=== PATIENT | male | born 1960 | race Hispanic/Latino ===

== ENCOUNTER 2017-03-20 14:37 | Emergency (ER) | payer OTHER ==
[~2017-03-20] VITALS: Ht 161.3 cm; Wt 70.3 kg
[~2017-03-20 14:37] MED LIST: FLEXERIL10 MG PO; MOBIC 15MG15 MG PO; PERCOCET 325 MG1 TA2 PO
[2017-03-20 14:39] VITALS: BP 136/87
== END 2017-03-20 15:23 | disposition admitted as inpatient to this hospital (09) ==
LOC: ERH 14:37
DX: S61.012A Laceration without foreign body of left thumb without damage to nail, initial encounter (principal); W26.0XXA Contact with knife, initial encounter

== ENCOUNTER 2017-12-19 19:27 | Emergency (ER) | payer OTHER ==
[~2017-12-19] VITALS: Ht 160 cm; Wt 70.3 kg
[~2017-12-19 19:27] MED LIST changes: +CYCLOBENZAPRINE10 M1 PO; +NEURONTIN300 M1 PO; +PERCOCET 5-3251 EACH PO
[2017-12-19 19:40] VITALS: BP 149/85
--- NOTE | 2017-12-19 19:46 | ED UPPER/LOWER EXTREMITY COMPL ---
History of Present Illness General Chief Complaint: Lower Extremity Problems Stated Complaint: LEFT LEG EXCRUCIATING PAIN, HERE YEST FOR SAME Source: patient, family, old records Exam Limitations: no limitations Vital Signs & Intake/Output Vital Signs & Intake/Output Vital Signs Date Time Temp Pulse Resp B/P B/P Pulse O2 O2 Flow FiO2 Mean Ox Delivery Rate 12/20 1939 96.9 87 20 149/85 98 Room Air ED Intake and Output 12/20 0000 12/19 1200 Intake Total 0 Output Total Balance 0 Intake, Oral 0 Patient 155 lb Weight Allergies Coded Allergies: NO KNOWN ALLERGIES (12/19/17) Reconcile Medications Cyclobenzaprine HCl 10 MG TABLET 1 TAB PO TID SPASMS CYCLOBENZAPRINE HCL (Flexeril) 10 MG TAB 1 TAB PO Q8H PRN spasm/pain Avoid operating motor vehicle or heavy machinery Gabapentin (Neurontin) 300 MG CAPSULE 1 CAP PO DAILY PAIN 1 TAB FOR FIRST 2 WEEKS INCREASES TO 2 TABS AFTER WEEK 2 Meloxicam (Mobic 15MG) 15 MG TAB 1 TAB PO DAILY PRN PAIN/INFLAMMATION Oxycodone HCl/Acetaminophen (Percocet 5-325 MG Tablet) 5 MG-325 MG TABLET 1-2 TAB PO BID pain OXYCODONE HCL/ACETAMINOPHEN (Percocet 5-325 MG Tablet) 325 MG/5 MG TAB 1 TAB PO Q4-6 PRN PRN PAIN Triage Note: PT TO TRIAGE C/O 07/17 SHOOTING PAIN DOWN L LEG. PT SEEN HERE YESTERDAY FOR SAME, RX OXYCODONE, FLEXERIL AND GABAPENTIN THAT HAVE NOT HELPED PER PT. PT REQUESTING U/S OR XRAY TO BE DONE. PER PT THIS HAS BEEN GOING ON FOR 2-3 MONTHS. Triage Nurses Notes Reviewed? yes Onset: Gradual Duration: worse persistent since (OVER PAST SEVERAL DAYS) Timing: recent history Severity: severe Severity Numbers: 10 Pain/Injury Location: Left: Leg. Method of Injury: unknown Modifying Factors: Improves With: immobilization. Worsens With: movement. HPI: Patient is a 57-year-old male presenting to the emergency department complaining of chronic left leg pain but got worse over the past several days. [facility] which have not been [facility]. He has only taken a few doses of each of the medications. Denies any nausea or vomiting fevers or chills chest pain or shortness of breath. Movement makes the pain worse. Nothing makes it better. He reports that he's been dealing with this pain for months if not years after he's had surgery secondary to broken bones. Denies any numbness or tingling. (Esther Rico) Past History Travel History Traveled to [place] past 21 day No Medical History Any Pertinent Medical History? see below for history Neurological: NONE EENT: NONE Cardiovascular: NONE Respiratory: NONE Gastrointestinal: NONE Hepatic: NONE Renal: NONE Musculoskeletal: fracture (left lower extremity), BULLET IN LEFT LEG Psychiatric: NONE Endocrine: NONE Blood Disorders: NONE Cancer(s): NONE Surgical History Surgical History: left knee and femur Psychosocial History What is your primary language Divehi Tobacco Use: Current Daily Use Daily Tobacco Use Amount/Type: => 5 Cigarettes daily Family History Hx Contributory? No (Esther Rico) Review of Systems Review of Systems Constitutional: Reports: no symptoms. Comments Review of systems: See HPI, All other systems negative. Constitutional, no chills fever or weight loss HEENT: No visual changes no sore throat no congestion Cardiovascular: No chest pain ,palpitation , orthopnea or ankle swelling Skin, no jaundice no rashes Respiratory: No dyspnea cough sputum or hemoptysis GI: No nausea no vomiting : No dysuria No hematuria Muscle skeletal: no back pain, no neck pain, Neurologic: No numbness no confusion Psych: No stress anxiety or depression,. Heme/endocrine: No bruising no bleeding no polyuria or polydipsia Immunology: No splenectomy or history of AIDS (Esther Rico) Physical Exam Physical Exam General Appearance: well developed/nourished, no apparent distress, alert, awake , comfortable Comments: Well-developed well-nourished person in no acute distress HEENT: Atraumatic, normocephalic Neck: Normal inspection Cardiovascular:PEDAL Pulses are 2+ bilaterally. Respiratory: . No respiratory distress. Extremity: No edema, left calf tenderness to palpation on exam. Limited range of motion of left lower extremity secondary to pain. On palpation of the left foot or ankle. Mild tenderness to palpation over the left patella tendon. Nontender to palpation in the popliteal space on the left lower extremity. Full range of motion of upper extremities. Lower range of motion of right lower extremity without difficulty or pain. Neuro: Alert oriented x3, motor sensory normal Skin: No appreciable rash on exposed skin, skin is warm and dry. Psych: Mood and affect is normal, memory and judgment is normal. (Jesse HORAN,Esther) Progress Differential Diagnosis: contusion, dislocation, DVT, fracture, gout, sprain, tendon injury, NEUROPATHY Plan of Care: Orders Procedure Date/time Status US-UNILATERAL VENOUS DOPPLER 12/19 1944 Active Diagnostic Imaging: Viewed by Me: Radiology Read, Ultrasound. Discussed w/RAD: Radiology Read, Ultrasound. Radiology Impression: PATIENT: LAKHWINDER KUMAR PRESENT AGE: 57 PATIENT ACCOUNT NO: [id number] : 61 LOCATION: [facility] ORDERING PHYSICIAN: Esther HORAN SERVICE DATE: 12/19/17 EXAM TYPE: US - US-UNILATERAL VENOUS DOPPLER EXAMINATION: US TRIPLEX LOWER EXTREMITY, LEFT CLINICAL INFORMATION: Calf pain COMPARISON: None TECHNIQUE: Color-flow triplex imaging with spectral analysis and compression Doppler were performed on the lower extremity. FINDINGS: Exam limited by patient pain. No evidence of deep vein thrombosis in the areas examined of the common femoral vein through the popliteal vein. Patient terminated exam before all segments of the leg veins were examined There is no Rain's cyst. IMPRESSION: Limited study. No evidence of deep vein thrombosis of the common femoral vein through the popliteal vein. DICTATED BY: Kevin Manuel MD DATE/TIME DICTATED:12/19/172209 QUALITY ASSURANCE TECH :MICHAEL DATE/TIME TRANSCRIBED:12/19/172209 CONFIDENTIAL, DO NOT COPY WITHOUT APPROPRIATE AUTHORIZATION. <Electronically signed in Other Vendor System> SIGNED BY: Kevin Manuel MD 12/19/172214, PATIENT: LAKHWINDER KUMAR PRESENT AGE: 57 PATIENT ACCOUNT NO: [id number] : LOCATION: [facility] ORDERING PHYSICIAN: Esther HORAN SERVICE DATE: 12/19/17 EXAM TYPE: US - US-UNILATERAL VENOUS DOPPLER EXAMINATION: US TRIPLEX LOWER EXTREMITY, LEFT CLINICAL INFORMATION: Calf pain COMPARISON: None TECHNIQUE: Color-flow triplex imaging with spectral analysis and compression Doppler were performed on the lower extremity. FINDINGS: Exam limited by patient pain. No evidence of deep vein thrombosis in the areas examined of the common femoral vein through the popliteal vein. Patient terminated exam before all segments of the leg veins were examined There is no Rain's cyst. IMPRESSION: Limited study. No evidence of deep vein thrombosis of the common femoral vein through the popliteal vein. DICTATED BY: Kevin Manuel MD DATE/TIME DICTATED:2209 QUALITY ASSURANCE TECH:MICHAEL DATE/TIME TRANSCRIBED:12/19/172209 CONFIDENTIAL, DO NOT COPY WITHOUT APPROPRIATE AUTHORIZATION. <Electronically signed in Other Vendor System> SIGNED BY: Kevin Manuel MD 12/19/172214 (Esther Rico) Departure Departure Time of Disposition: 2230 Disposition: HOME OR SELF CARE Condition: Stable Clinical Impression Primary Impression: Leg pain Qualifiers: Laterality: left Qualified Code: M79.605 - Pain in left leg Referrals: Tej Burnham MD (PCP/Family) Additional Instructions: Up with orthopedic as scheduled for Sunday. Continue previously prescribed medications. Elevate legs which is possible. Return for worsening symptoms or concerns. Departure Forms: Customer Survey General Discharge Information (Esther Rico) PA/[employer] Co-Sign Statement Statement: ED Attending supervision documentation- [] I saw and evaluated the patient. I have also reviewed all the pertinent lab results and diagnostic results. I agree with the findings and the plan of care as documented in the PA's/[employer] [facility]'s documentation. [x] I have reviewed the ED Record and agree with the PA's/[employer]'s documentation. [] Additions or exceptions (if any) to the PAs/[employer]'s note and plan are summarized below: [] (Glenroy Echeverria DO
--- NOTE | 2017-12-19 20:15 | RADIOLOGY REPORT ---
3 VIEWS OF THE LEFT KNEE CLINICAL INFORMATION: Worsening pain COMPARISON: Left knee radiographs 05/15/2016 FINDINGS: Redemonstrated 3 intramedullary rods within the imaged femur . Multiple metallic foreign bodies are again noted within and surrounding the distal femoral metadiaphyseal junction. No acute fractures are identified. There is partially imaged exuberant heterotopic ossification adjacent to the mid femur on the lateral view. Progressive medial compartment joint space narrowing which now appears moderate. Patellofemoral compartment joint space narrowing is similar to the previous exam with a similar osteophyte along the upper pole of the patella. No knee joint effusion. IMPRESSION: Progressive moderate medial compartment joint space narrowing and similar patellofemoral compartment joint space narrowing and hypertrophic degenerative change. No acute findings. Stable postsurgical changes and metallic foreign bodies. There is partially imaged exuberant heterotopic ossification adjacent to the mid femur on the lateral view.
--- NOTE | 2017-12-19 22:15 | ULTRASOUND REPORT ---
EXAMINATION: US TRIPLEX LOWER EXTREMITY, LEFT CLINICAL INFORMATION: Calf pain COMPARISON: None TECHNIQUE: Color-flow triplex imaging with spectral analysis and compression Doppler were performed on the lower extremity. FINDINGS: Exam limited by patient pain. No evidence of deep vein thrombosis in the areas examined of the common femoral vein through the popliteal vein. Patient terminated exam before all segments of the leg veins were examined There is no Rain's cyst. IMPRESSION: Limited study. No evidence of deep vein thrombosis of the common femoral vein through the popliteal vein.
== END 2017-12-19 22:40 ==
LOC: ERH 19:27
DX: M79.605 Pain in left leg (principal)
CPT/HCPCS: 73562-LT; 96372; J1885